=== PATIENT | male | born 1940 | race Caucasian/White ===

== ENCOUNTER → 2017-07-05 | Outpatient (CLI) | payer OTHER ==
[~2017-07-05] MED LIST: CALCIUM 500 +1 EAC5 PO; CINNAMON500 MG PO; DAILY MULTIPLE1 EACH PO; DIPHENHIST50 MG PO; FOSAMAX 70 MG T70 MG PO; NORVASC5 MG PO; TENORMIN50 MG PO; VITAMIN E400 UNIT PO; VITAMINC500 PO; ZOCOR20 MG PO
--- NOTE | 2017-07-18 23:55 | ONC ---
[address] [address] RADIATION ONCOLOGY NOTE Name: YAZ CAIN Room: [facility]#: [id number] Admission: 07/05/17 Attend Phys: Viet Harding MD Discharge: Date of : 40 Report #: [id number] THIS REPORT FOR: //name// CC: Viet Marie MD DATE OF SERVICE: 07/05/2017 RADIATION ONCOLOGY FOLLOWUP NOTE REFERRING PHYSICIANS: Andreia Kelley, nurse practitioner; also Yamil Rodrigues MD, from [facility]; and also Dr. Benigno Mraie from Endocrinology. [facility] phone is [phone]. PRIMARY SITE AND HISTOPATHOLOGY: The patient received postoperative radiation therapy after prostatectomy for a T3 N0 M0 adenocarcinoma of the prostate and [place] score was 4+4 equals 8. The prostate cancer was invading the urethral surgical margin extending to involve the posterior surgical margin. There was some intravesical invasion as well. He went on to receive postoperative radiation treatments. Radiation treatments were completed on 04/29/2011. INTERVAL NOTE: The patient felt like he was emptying his bladder well. MEDICATIONS: Simvastatin, losartan, amlodipine, and Fosamax. SOCIAL HISTORY: The patient is retired. He is . Cigarettes: he does not smoke cigarettes. REVIEW OF SYSTEMS: GENITOURINARY: The patient is emptying his bladder well. He has nocturia about 2-4 times a night. GASTROINTESTINAL: The patient has a good appetite. He has a bowel movement about every other day to 2 bowel movements a day. PHYSICAL EXAMINATION: BACK: Has no tenderness to palpation. HEART: Had a regular rate and rhythm without murmur. LUNGS: were clear to auscultation. LABORATORY DATA: From 06/24/2017 was 0.3 and 0.3 on 03/26/2017. ASSESSMENT AND PLAN: [place] [address] RADIATION ONCOLOGY NOTE Name: YAZ CAIN Room: [facility]#: [id number] Admission: 07/05/17 Attend Phys: Viet Harding MD Discharge: Date of : 40 Report #: [id number] 1. The patient has recurrent prostate cancer based on the detectable PSA- though the PSA is staying relatively stable. The patient is now also following up with his urologist, Dr. Rodrigues. He said he is scheduled to see him in July 2017 and that he is going to probably be seeing him about every 4 months and then depending upon the rate of rise of the PSA, he will determine when he would consider androgen suppression. So at this point, the patient wanted to just follow up with the urologist, Dr. Rodrigues and that seems reasonable. So he has no further followup appointments scheduled with me. Do not hesitate to consult me if the patient should require an evaluation for radiation therapy in the future. 2. Hyperlipidemia- The patient takes simvastatin and that is managed by his referring physicians. 3. Hypertension- The patient takes losartan and that is managed by his referring physicians. Thank you for allowing me to participate in the care of this patient. <ELECTRONICALLY SIGNED> By: Viet Harding MD 07/18/17 [id number] Harding MD /nt
== END ==
LOC: M.RTH 01:01
DX: C61 Malignant neoplasm of prostate (principal); I10 Essential (primary) hypertension; E78.5 Hyperlipidemia, unspecified